=== PATIENT | female | born 1945 | race Caucasian/White ===

== ENCOUNTER → 2016-09-11 | Outpatient (CLI) | payer MEDICARE, OTHER ==
[~2016-09-11] MED LIST: B COMPLETE1 EACH PO; CO Q-10400 MG PO; CURAMIN PO; GLUCOSAMINE &1 EACH PO; LO-DOSE ASPIRIN81 M1 PO; MAGNESIUM OXID200 MG PO; MOTRIN400 MG PO; OMEGA 3-6-9 CO1 EACH PO; PROBIOTIC1 EAC2 PO; TUMERIC PO; VITAMIN D35000 UNIT PO; [UNRECOGNIZED DRUG - OTHER] PO
== END | disposition home or self-care (01) ==
LOC: CDC 15:46
DX: Z01.810 Encounter for preprocedural cardiovascular examination (principal); K43.2 Incisional hernia without obstruction or gangrene
CPT/HCPCS: 93000

== ENCOUNTER 2016-10-01 05:25 | Day surgery (SDC) | payer OTHER ==
[~2016-10-01] VITALS: Ht 162.6 cm; Wt 92.9 kg
[~2016-10-01 05:25] MED LIST changes: +COMBIGAN O20 DROP/5 RIGHT EYE; +CRANBERRY200 MG PO
[2016-10-01 06:13] VITALS: BP 126/88
[2016-10-01] MEDS ORDERED: NORCO 5/3251 TABLET PO (08:58)
[2016-10-01 09:50] VITALS: BP 123/72
[2016-10-01 10:59] VITALS: BP 103/57
[2016-10-01 12:00] VITALS: BP 123/60
[2016-10-01 13:08] VITALS: BP 126/69
== END 2016-10-01 13:15 | disposition home or self-care (01) ==
LOC: SDC 05:25
PROC: 0WUF0JZ Supplement Abdominal Wall with Synthetic Substitute, Open Approach (ICD-10-PCS; principal; 2016-10-01)
DX: K43.2 Incisional hernia without obstruction or gangrene (principal); Z86.72 Personal history of thrombophlebitis; E66.9 Obesity, unspecified; Z68.36 Body mass index [BMI] 36.0-36.9, adult; Z79.82 Long term (current) use of aspirin; Z91.040 Latex allergy status; Z82.49 Family history of ischemic heart disease and other diseases of the circulatory system; Z82.0 Family history of epilepsy and other diseases of the nervous system
CPT/HCPCS: C1781; J0330; J0690; J2250; J2405; J3010; S0020

== ENCOUNTER 2017-04-13 21:23 | Inpatient (IN) | payer OTHER ==
[~2017-04-13] VITALS: Ht 162.6 cm; Wt 95.0 kg
[~2017-04-13 21:23] MED LIST changes: +ESSENTIAL WOMA1 EAC1 PO; +MIRALAX17 GM PO; +MOVE FREE JOIN1 EACH PO; +NORCO 5/3251 TABLET PO; +VAGIFEM10 MCG VG
[2017-04-14] MEDS ORDERED: AMBIEN5 MG PO (06:20)
[2017-04-14 06:39] VITALS: BP 116/55
[2017-04-14 13:00] VITALS: BP 91/52
[2017-04-14 15:25] VITALS: BP 109/63
[2017-04-14 19:30] VITALS: BP 105/56
[2017-04-14 23:35] VITALS: BP 113/59
[2017-04-15 03:32] VITALS: BP 110/55
[2017-04-15 07:01] LABS: BASOPHIL COUNT 0.1 K/uL (0-0.1); EOSINOPHIL (%) 1.6 % (0-5); EOSINOPHIL COUNT 0.2 K/uL (0-0.3); HEMATOCRIT 38.7 % (36.0-46.0); IMMATURE GRANULOCYTE (%) 0.4 % (0.0-0.7); INSTRUMENT ABS NEUTROPHIL CT 8.5 K/uL; LYMPHOCYTE COUNT 1.4 K/uL (1.0-2.8); MCH 31.7 PG (29.0-34.0); MCHC 32.8 G/DL (30.0-36.0); MCV 96.5 FL (83-99); MEAN PLAT.VOLUME 9.5 uM^3 (9.5-12.4); MONOCYTE COUNT 0.8 K/uL (0-0.8); NEUTROPHIL COUNT 8.5 K/uL (1.8-6.4); PLATELET COUNT 160 K/uL (156-360); RBC DIS.WIDTH-CV 14.4 % (11.8-14.6); RBC DIS.WIDTH-SD 50.8 % (39-53); RED BLOOD COUNT 4.01 M/uL (3.80-5.20); WHITE BLOOD COUNT 10.9 K/uL (4.1-10.2)
[2017-04-15 07:28] LABS: ANION GAP 7 MEQ/L (2-14); CHLORIDE 105 MEQ/L (99-109); GFR ESTIMATE (CALCULATED) > 59 mL/min/; GLUCOSE 111 mg/dL (70-99); POTASSIUM 3.7 MEQ/L (3.7-5.4); SAMPLE HEMOLYSIS CHECK 0; SAMPLE ICTERIC CHECK 0; SAMPLE LIPEMIA CHECK 0; SODIUM 143 MEQ/L (136-147); UREA NITROGEN (BUN) 10 mg/dL (9-23)
[2017-04-15 07:30] VITALS: BP 109/59
[2017-04-15 11:25] VITALS: BP 116/68
[2017-04-15 15:25] VITALS: BP 117/58
[2017-04-15 19:10] VITALS: BP 122/58
[2017-04-15 22:35] VITALS: BP 112/70
[2017-04-16 03:50] VITALS: BP 106/57
[2017-04-16 06:34] LABS: BASOPHIL COUNT 0.1 K/uL (0-0.1); EOSINOPHIL (%) 2.9 % (0-5); EOSINOPHIL COUNT 0.3 K/uL (0-0.3); HEMATOCRIT 36.7 % (36.0-46.0); IMMATURE GRANULOCYTE (%) 0.3 % (0.0-0.7); INSTRUMENT ABS NEUTROPHIL CT 6.5 K/uL; LYMPHOCYTE COUNT 1.6 K/uL (1.0-2.8); MCH 30.5 PG (29.0-34.0); MCHC 31.9 G/DL (30.0-36.0); MCV 95.8 FL (83-99); MEAN PLAT.VOLUME 10.2 uM^3 (9.5-12.4); MONOCYTE (%) 8.8 % (3-12); MONOCYTE COUNT 0.8 K/uL (0-0.8); NEUTROPHIL (%) 70.2 % (45-76); NEUTROPHIL COUNT 6.5 K/uL (1.8-6.4); PLATELET COUNT 167 K/uL (156-360); RBC DIS.WIDTH-CV 14.6 % (11.8-14.6); RBC DIS.WIDTH-SD 51.2 % (39-53); RED BLOOD COUNT 3.83 M/uL (3.80-5.20); WHITE BLOOD COUNT 9.2 K/uL (4.1-10.2)
[2017-04-16 07:00] LABS: ANION GAP 6 MEQ/L (2-14); CHLORIDE 109 MEQ/L (99-109); GFR ESTIMATE (CALCULATED) > 59 mL/min/; GLUCOSE 106 mg/dL (70-99); POTASSIUM 3.7 MEQ/L (3.7-5.4); SAMPLE HEMOLYSIS CHECK 0; SAMPLE ICTERIC CHECK 0; SAMPLE LIPEMIA CHECK 0; SODIUM 144 MEQ/L (136-147); UREA NITROGEN (BUN) 11 mg/dL (9-23)
[2017-04-16 08:16] VITALS: BP 102/58
[2017-04-16 08:17] VITALS: BP 102/58
== END 2017-04-16 16:49 | disposition home or self-care (01) | DRG 742 ==
LOC: ENRESERV 21:23 → 2SOUTH 04-14 05:29 → 2EAST 04-14 05:29 → 2SOUTH 04-14 09:32 → ENRESERV 04-14 10:45 → 2EAST 04-14 12:48 → 2SOUTH 04-14 13:28 → 2EAST 04-16 16:49
PROVIDERS: Obstetrics & Gynecology Gynecology
PROC: 0UT90ZZ Resection of Uterus, Open Approach (ICD-10-PCS; principal; 2017-04-14)
PROC: 0UT20ZZ Resection of Bilateral Ovaries, Open Approach (ICD-10-PCS; principal; 2017-04-14)
PROC: 0USG0ZZ Reposition Vagina, Open Approach (ICD-10-PCS; principal; 2017-04-14)
PROC: 0UTC0ZZ Resection of Cervix, Open Approach (ICD-10-PCS; principal; 2017-04-14)
PROC: 0TJB8ZZ Inspection of Bladder, Via Natural or Artificial Opening Endoscopic (ICD-10-PCS; principal; 2017-04-14)
PROC: 0UN10ZZ Release Left Ovary, Open Approach (ICD-10-PCS; principal; 2017-04-14)
PROC: 0UT70ZZ Resection of Bilateral Fallopian Tubes, Open Approach (ICD-10-PCS; principal; 2017-04-14)
DX: N81.4 Uterovaginal prolapse, unspecified (principal); N39.0 Urinary tract infection, site not specified; N81.6 Rectocele; E66.09 Other obesity due to excess calories; Z68.35 Body mass index [BMI] 35.0-35.9, adult; R73.9 Hyperglycemia, unspecified; N73.6 Female pelvic peritoneal adhesions (postinfective); N95.2 Postmenopausal atrophic vaginitis; Z90.49 Acquired absence of other specified parts of digestive tract; Z87.891 Personal history of nicotine dependence; Z78.0 Asymptomatic menopausal state; E21.3 Hyperparathyroidism, unspecified; G25.81 Restless legs syndrome; G47.30 Sleep apnea, unspecified; K58.9 Irritable bowel syndrome, unspecified; Z79.82 Long term (current) use of aspirin
CPT/HCPCS: 80048; 85025; 87077; 87086; 87186; 88307; 94799; C1758; J0690; J1100; J1170; J1650; J1885; J2001; J2405; J2710; J2765; J2795; J3010; J3475; J7120; Q0175